=== PATIENT | male | born 1990 | race Caucasian/White ===

== ENCOUNTER 2020-01-05 14:58 | Outpatient (REF) | payer OTHER, SELFPAY | END 2020-01-05 14:59 | disposition home or self-care (01) | LOC: HO.LNP 14:58 | PROVIDERS: PCP Internal Medicine; Visit Provider Internal Medicine | DX: F11.99 Opioid use, unspecified with unspecified opioid-induced disorder (principal) | CPT/HCPCS: 36415; 80348; 96372; 99211; Q9992 ==

== ENCOUNTER → 2020-02-03 10:51 | Outpatient (BNVA) | payer OTHER, SELFPAY | PROVIDERS: Visit Provider Internal Medicine | DX: F11.99 Opioid use, unspecified with unspecified opioid-induced disorder (principal); B19.20 Unspecified viral hepatitis C without hepatic coma | CPT/HCPCS: 80305; 99212; Q9991 ==

== ENCOUNTER → 2020-03-02 11:19 | Outpatient (BNVA) | payer OTHER, SELFPAY | PROVIDERS: Visit Provider Internal Medicine | DX: F11.99 Opioid use, unspecified with unspecified opioid-induced disorder (principal) | CPT/HCPCS: 80305; 99211; Q9991 ==

== ENCOUNTER → 2020-03-30 11:00 | Outpatient (BNVA) | payer OTHER, SELFPAY | PROVIDERS: PCP Internal Medicine; Visit Provider Internal Medicine | DX: F11.99 Opioid use, unspecified with unspecified opioid-induced disorder (principal) | CPT/HCPCS: 96372; 99211; Q9991 ==

== ENCOUNTER → 2020-04-28 11:11 | Outpatient (BNVA) | payer OTHER, SELFPAY | PROVIDERS: Visit Provider Internal Medicine | DX: F11.99 Opioid use, unspecified with unspecified opioid-induced disorder (principal); B19.20 Unspecified viral hepatitis C without hepatic coma | CPT/HCPCS: 80305; 96372; 99212; Q9991 ==

== ENCOUNTER → 2020-05-27 11:04 | Outpatient (BNVA) | payer OTHER, SELFPAY | PROVIDERS: Visit Provider Nurse Practitioner Psychiatric/Mental Health | DX: F11.99 Opioid use, unspecified with unspecified opioid-induced disorder (principal); Z51.81 Encounter for therapeutic drug level monitoring | CPT/HCPCS: 80305; 96372; 99211; Q9991 ==

== ENCOUNTER 2020-06-22 09:44 | Outpatient (REF) | payer OTHER, SELFPAY ==
[2020-06-24 17:47] LABS: HCV Log PCR <1.18 NOT DETECTED Log IU/mL (NOT DETECTED); HepC Viral Load <15 NOT DETECTED IU/mL (NOT DETECTED)
[2020-06-25 11:42] LABS: Buprenorphine Negative; Norbuprenorphine Negative
== END 2020-06-22 09:45 | disposition home or self-care (01) ==
LOC: HO.LAB 09:44
PROVIDERS: Visit Provider Internal Medicine
DX: F11.99 Opioid use, unspecified with unspecified opioid-induced disorder (principal); B19.20 Unspecified viral hepatitis C without hepatic coma; Z51.81 Encounter for therapeutic drug level monitoring; Z79.899 Other long term (current) drug therapy
CPT/HCPCS: 80305; 80348; 87522; 96372; 99212; Q9991

== ENCOUNTER → 2020-07-21 13:05 | Outpatient (BNVA) | payer OTHER, SELFPAY | PROVIDERS: Visit Provider Internal Medicine | DX: F11.99 Opioid use, unspecified with unspecified opioid-induced disorder (principal); Z51.81 Encounter for therapeutic drug level monitoring | CPT/HCPCS: 80305; 96372; 99212; Q9992 ==

== ENCOUNTER → 2021-12-21 10:27 | Outpatient (BNVA) | payer OTHER, SELFPAY | PROVIDERS: PCP Internal Medicine; Visit Provider Nurse Practitioner Psychiatric/Mental Health | DX: F11.20 Opioid dependence, uncomplicated (principal) | CPT/HCPCS: 99212 ==

== ENCOUNTER 2021-12-28 10:53 | Outpatient (REF) | payer OTHER, SELFPAY ==
[2021-12-30 17:57] LABS: HCV Log PCR 1.76 Log IU/mL (NOT DETECTED); HepC Viral Load 58 IU/mL (NOT DETECTED)
== END 2021-12-28 10:54 | disposition home or self-care (01) ==
LOC: HO.LAB 10:53
PROVIDERS: PCP Internal Medicine; Visit Provider Internal Medicine
DX: F11.20 Opioid dependence, uncomplicated (principal); B19.20 Unspecified viral hepatitis C without hepatic coma; Z51.81 Encounter for therapeutic drug level monitoring; Z79.899 Other long term (current) drug therapy
CPT/HCPCS: 36415; 80305; 87522; 96372; 99212

== ENCOUNTER → 2022-01-11 10:37 | Outpatient (BNVA) | payer OTHER, SELFPAY | PROVIDERS: PCP Internal Medicine; Visit Provider Nurse Practitioner Psychiatric/Mental Health | DX: F11.20 Opioid dependence, uncomplicated (principal); F43.10 Post-traumatic stress disorder, unspecified; Z51.81 Encounter for therapeutic drug level monitoring; Z79.899 Other long term (current) drug therapy | CPT/HCPCS: 80305; 99212 ==

== ENCOUNTER → 2022-01-27 10:07 | Outpatient (BNVA) | payer OTHER, SELFPAY | PROVIDERS: PCP Internal Medicine; Visit Provider Nurse Practitioner Psychiatric/Mental Health | DX: F11.20 Opioid dependence, uncomplicated (principal); F43.10 Post-traumatic stress disorder, unspecified; B19.20 Unspecified viral hepatitis C without hepatic coma; Z51.81 Encounter for therapeutic drug level monitoring | CPT/HCPCS: 80305; 99212 ==

== ENCOUNTER 2022-02-03 10:14 | Outpatient (REF) | payer OTHER, SELFPAY ==
[2022-02-03 11:23] LABS: MANUAL DIFF FLAG NO
[2022-02-03 12:04] LABS: Basophils Percent Auto 0.5 % (0-2); Eosinophils Absolute Auto 0.1 X10*3/uL (0.0-0.4); Eosinophils Percent Auto 3.2 % (0-4); Hematocrit 40.8 % (42.0-52.0); Hemoglobin 13.2 g/dl (14.0-18.0); Imm Gran Abs Auto 0.01 X10*3/uL (0.00-0.03); Imm Gran Pct Auto 0.2 % (0.0-0.4); Lymphocytes Absolute Auto 1.6 X10*3/uL (1.2-4.9); Lymphocytes Percent Auto 38.7 % (20-40); Mean Corpuscular HGB Conc 32.4 g/dl (31.0-36.0); Mean Corpuscular Hemoglobin 27.5 pg (27.0-33.0); Mean Platelet Volume 9.4 fL (9.4-12.4); Monocytes Absolute Auto 0.4 X10*3/uL (0.1-1.2); Monocytes Percent Auto 9.7 % (2-11); Neutrophils Absolute Auto 1.9 x10*3/uL (2.0-8.3); Neutrophils Percent Auto 47.7 % (45-73); Platelet Count 184 X10*3/uL (160-400); Red Cell Distribution Width 11.9 % (11.0-16.0)
[2022-02-03 13:28] LABS: Alanine Aminotransferase 102 U/L (0-40); Albumin Level 4.3 g/dL (3.5-5.0); Alkaline Phosphatase 65 U/L (39-117); Anion Gap 14 (12-20); Aspartate Amino Transferase 48 U/L (5-37); Bilirubin Direct 0.3 mg/dL (0.0-0.5); Bilirubin Total 0.8 mg/dL (0.0-1.0); Blood Urea Nitrogen 16 mg/dL (9-16); Calcium 9.3 mg/dL (8.4-10.2); Carbon Dioxide 26 mmol/L (22-29); Chloride 106 mmol/L (96-108); Estimated Glomerular Filt Rate > 60; Glucose Random 107 mg/dL (60-115); Sodium 142 mmol/L (135-145); Total Protein 7.4 g/dL (6.5-8.0)
[2022-02-06 04:58] LABS: HIV AB/AG Nonreactive (Nonreactive); HIV Num 1 0.17 S/CO (0.00-0.99)
[2022-02-08 12:57] LABS: HCV RNA PCR Qn 4.66 Log IU/mL (NOT DETECTED); HCV RNA PCR Qn 45500 IU/mL (NOT DETECTED)
[2022-02-10 00:26] LABS: FIB-ALT 88 U/L (9-46); FIB-Alpha-2-Macroglobulin 190 mg/dL (106-279); FIB-Apolipoprotein A1 125 mg/dL (94-176); FIB-GGT 17 U/L (3-90); FIB-Haptoglobin 68 mg/dL (43-212); FIB-Total Bilirubin 0.7 mg/dL (0.2-1.2); Liver Fibrosis Score 0.22; Liver Fibrosis Stage F0-F1; Nec Inflam Act Grade A1-A2; Nec Inflam Act Score 0.48
[2022-02-12 11:27] LABS: HCV Genotype LiPA 1b
== END 2022-02-03 10:15 | disposition home or self-care (01) ==
LOC: HO.LAB 10:14
PROVIDERS: Internal Medicine; PCP Internal Medicine; Visit Provider Nurse Practitioner Psychiatric/Mental Health
DX: B19.20 Unspecified viral hepatitis C without hepatic coma (principal); F11.20 Opioid dependence, uncomplicated; Z51.81 Encounter for therapeutic drug level monitoring
CPT/HCPCS: 36415; 80048; 80076; 80305; 81596; 85025; 87389; 87522; 87902; 96372; 99212

== ENCOUNTER → 2022-03-10 10:23 | Outpatient (BNVA) | payer OTHER, SELFPAY | PROVIDERS: PCP Internal Medicine; Visit Provider Nurse Practitioner Psychiatric/Mental Health | DX: F11.20 Opioid dependence, uncomplicated (principal); Z79.899 Other long term (current) drug therapy; Z51.81 Encounter for therapeutic drug level monitoring | CPT/HCPCS: 80305; 96372; 99212 ==

== ENCOUNTER 2022-03-24 10:14 | Emergency (ER) | payer OTHER, SELFPAY ==
[2022-03-24 10:18] VITALS: BP 137/83; PULSE 83; RESP 18; TEMP 36.7; O2SAT 94; BMI 26.4
[2022-03-24] MEDS: Ibuprofen 600 MG TABLET PO (11:01)
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
== END 2022-03-24 12:33 | disposition home or self-care (01) ==
PROVIDERS: Emergency Provider Student in an Organized Health Care Education/Training Program; PCP Internal Medicine
DX: S62.91XA Unspecified fracture of right hand, initial encounter for closed fracture (principal); M25.531 Pain in right wrist; Y29.XXXA Contact with blunt object, undetermined intent, initial encounter; Y93.9 Activity, unspecified; Y92.9 Unspecified place or not applicable; Y99.9 Unspecified external cause status; Z79.899 Other long term (current) drug therapy
CPT/HCPCS: 73110; 73130; 99283

== ENCOUNTER 2022-06-29 10:23 | Outpatient (REF) | payer OTHER, SELFPAY ==
[2022-07-01 18:34] LABS: HCV RNA PCR Qn 1.96 Log IU/mL (NOT DETECTED); HCV RNA PCR Qn 92 IU/mL (NOT DETECTED)
== END 2022-06-29 10:24 | disposition home or self-care (01) ==
LOC: HO.LAB 10:23
PROVIDERS: PCP Internal Medicine; Visit Provider Internal Medicine
DX: F11.99 Opioid use, unspecified with unspecified opioid-induced disorder (principal); Z51.81 Encounter for therapeutic drug level monitoring; Z79.899 Other long term (current) drug therapy
CPT/HCPCS: 36415; 80305; 87522; 87902; 99212

== ENCOUNTER → 2022-07-10 11:02 | Outpatient (BNVA) | payer OTHER, SELFPAY | PROVIDERS: PCP Internal Medicine; Visit Provider Internal Medicine | DX: B19.20 Unspecified viral hepatitis C without hepatic coma (principal) | CPT/HCPCS: 99212 ==

== ENCOUNTER → 2022-07-14 12:58 | Outpatient (BNVA) | payer OTHER, SELFPAY | PROVIDERS: PCP Internal Medicine; Visit Provider Nurse Practitioner Psychiatric/Mental Health | DX: F11.99 Opioid use, unspecified with unspecified opioid-induced disorder (principal); B19.20 Unspecified viral hepatitis C without hepatic coma; Z51.81 Encounter for therapeutic drug level monitoring; Z79.899 Other long term (current) drug therapy | CPT/HCPCS: 80305; 96372 ==

== ENCOUNTER → 2022-08-15 13:11 | Outpatient (BNVA) | payer OTHER, SELFPAY | PROVIDERS: PCP Internal Medicine; Visit Provider Nurse Practitioner Psychiatric/Mental Health | DX: F11.20 Opioid dependence, uncomplicated (principal); B19.20 Unspecified viral hepatitis C without hepatic coma; Z79.899 Other long term (current) drug therapy; Z51.81 Encounter for therapeutic drug level monitoring | CPT/HCPCS: 80305; 96372; 99212 ==

== ENCOUNTER 2022-10-31 14:44 | Outpatient (AMB) | payer OTHER, SELFPAY ==
--- NOTE | 2022-10-31 14:48 | MHC.OFFVIS ---
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 Released from [facility] last week. Had been receiving Suboxone 8 mg b.i.d. there. Denies any recurrence since release date. States that prior to admission at [place] [id number] facility patient was using daily for 1-2 weeks. Familiar with injection, no questions or concerns at this time. [facility] Medical History Hepatitis C infection Review of Systems Const Reports as per HPI and Reports no additional complaints Physical Exam Const General: cooperative Skin General skin exam: no rashes or lesions noted Extrem General: Yes normal to inspection Psych Appearance: grossly normal Office Meds Sublocade 300 mg/1.5 mL solution,extended release subcutaneous syringe Performing Provider: Sarah Saldivar CNP Performing Location: [facility] Administered by: Tiarra Cordova on 10/31/22 15:28 Dose Route Admin Location Dispensed Lot Number Expiration Date [facility] Manifest/Order Organizer Print Orders 300 mg subcut LLQ 1.5 mL [id number] 04/02/24 [address]-9 [employer]. Comments: Pt tolerated injection well. Educated on signs/symptoms of infection, encouraged to call the [facility] with any questions or concerns. Results AMB 14 Panel Urine Drug Screen Urine Marijuana (THC) Positive Last Edit by Mellissa Da Silva CMA on 10/31/22 14:57 Urine Cocaine Negative Last Edit by Mellissa Da Silva CMA on 10/31/22 14:57 Urine Morphine Negative Last Edit by Mellissa Da Silva CMA on 10/31/22 14:57 Urine Methamphetamine Negative Last Edit by Mellissa Da Silva CMA on 10/31/22 14:57 Urine Amphetamine Negative Last Edit by Mellissa Da Silva CMA on 10/31/22 14:57 Urine Benzodiazepine Negative Last Edit by Mellissa Da Silva CMA on 10/31/22 14:57 Urine Barbiturates Negative Last Edit by Mellissa Da Silva CMA on 10/31/22 14:57 Urine Methadone Negative Last Edit by Mellissa Da Silva CMA on 10/31/22 14:57 Urine Buprenorphine Positive Last Edit by Mellissa Da Silva CMA on 10/31/22 14:57 Urine Tricyclic Antidepressant Negative Last Edit by Mellissa Da Silva CMA on 10/31/22 14:57 Urine MDMA Negative Last Edit by Mellissa Da Silva CMA on 10/31/22 14:57 Urine Oxycodone Negative Last Edit by Mellissa Da Silva CMA on 10/31/22 14:57 Urine Phencyclidine Negative Last Edit by Mellissa Da Silva CMA on 10/31/22 14:57 Urine Propoxyphene Negative Last Edit by Mellissa Da Silva CMA on 10/31/22 14:57 Results Reviewed Results Reviewed: Laboratory Last Values POC Urine Buprenorphine Positive 10/31/22 14:49 POC Urine Morphine Negative 10/31/22 14:49 POC Urine Oxycodone Negative 10/31/22 14:49 POC Urine Methadone Negative 10/31/22 14:49 POC Urine Propoxyphene Negative 10/31/22 14:49 POC Urine Barbiturates Negative 10/31/22 14:49 POC U Tricyclic Antidpr Negative 10/31/22 14:49 POC Urine PCP Negative 10/31/22 14:49 POC Ur Amphetamines Negative 10/31/22 14:49 POC Ur Methamphetamine Negative 10/31/22 14:49 POC Urine MDMA Negative 10/31/22 14:49 POC Ur Benzodiazepine Negative 10/31/22 14:49 POC Urine Cocaine Negative 10/31/22 14:49 POC Ur Marijuana (THC) Positive 10/31/22 14:49 Assessment & Plan Assessment & Plan (1) Opioid use disorder: Code(s): F11.99 - Opioid use, unspecified with unspecified opioid-induced disorder Plan: Tolerated injection Relapse prevention discussion Follow-up 2 weeks Orders: Orders AMB 14 Panel Urine Drug Screen 10/31/22 Z51.81 - Encounter for therapeutic drug level monitoring AMB Buprenorphine Injection - Patient Supplied 10/31/22 F11.99 - Opioid use, unspecified with unspecified opioid-induced disorder Coding Level of Care Code Est Pt Level 3 (09200) Diagnoses Opioid use disorder F11.99
== END 2022-10-31 15:40 | disposition home or self-care (01) ==
LOC: HO.HCC 14:44
PROVIDERS: PCP Internal Medicine; Visit Provider Nurse Practitioner Psychiatric/Mental Health
DX: F11.99 Opioid use, unspecified with unspecified opioid-induced disorder (principal)
CPT/HCPCS: 99213; Q9992

== ENCOUNTER → 2022-10-31 14:44 | Outpatient (BNVA) | payer OTHER, SELFPAY | PROVIDERS: PCP Internal Medicine; Visit Provider Nurse Practitioner Psychiatric/Mental Health | DX: F11.20 Opioid dependence, uncomplicated (principal); B19.20 Unspecified viral hepatitis C without hepatic coma; Z51.81 Encounter for therapeutic drug level monitoring; Z79.899 Other long term (current) drug therapy | CPT/HCPCS: 80305; 96372; 99212 ==

== ENCOUNTER 2022-12-05 13:45 | Outpatient (AMB) | payer OTHER, SELFPAY ==
--- NOTE | 2022-12-05 13:47 | AM.OFFVISNUR ---
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 Required: No Allergies No Known Allergies [No Known Allergies*] Allergy (Verified 12/05/22 13:48) Do you need a note to return to daycare/school/sports/work: No Results AMB 14 Panel Urine Drug Screen Urine Marijuana (THC) Positive Last Edit by Mellissa Da Silva CMA on 12/05/22 14:08 Urine Cocaine Positive Last Edit by Mellissa Da Silva CMA on 12/05/22 14:08 Urine Morphine Positive Last Edit by Mellissa Da Silva CMA on 12/05/22 14:08 Urine Methamphetamine Negative Last Edit by Mellissa Da Silva CMA on 12/05/22 14:08 Urine Amphetamine Negative Last Edit by Mellissa Da Silva CMA on 12/05/22 14:08 Urine Benzodiazepine Negative Last Edit by Mellissa Da Silva CMA on 12/05/22 14:08 Urine Barbiturates Negative Last Edit by Mellissa Da Silva CMA on 12/05/22 14:08 Urine Methadone Negative Last Edit by Mellissa Da Silva CMA on 12/05/22 14:08 Urine Buprenorphine Positive Last Edit by Mellissa Da Silva CMA on 12/05/22 14:08 Urine Tricyclic Antidepressant Negative Last Edit by Mellissa Da Silva CMA on 12/05/22 14:08 Urine MDMA Positive Last Edit by Mellissa Da Silva CMA on 12/05/22 14:08 Urine Oxycodone Negative Last Edit by Mellissa Da Silva CMA on 12/05/22 14:08 Urine Phencyclidine Negative Last Edit by Mellissa Da Silva CMA on 12/05/22 14:08 Urine Propoxyphene Negative Last Edit by Mellissa Da Silva CMA on 12/05/22 14:08 Coding Diagnoses Assessment & Plan Assessment & Plan Orders: Orders AMB 14 Panel Urine Drug Screen Today Z51.81 - Encounter for therapeutic drug level monitoring
[2022-12-05 14:04] VITALS: BP 134/82; PULSE 86; O2SAT 97
== END 2022-12-05 14:34 | disposition home or self-care (01) ==
PROVIDERS: PCP Internal Medicine; Visit Provider Nurse Practitioner Psychiatric/Mental Health
DX: Z51.81 Encounter for therapeutic drug level monitoring (principal)

== ENCOUNTER → 2022-12-05 13:45 | Outpatient (BNVA) | payer OTHER, SELFPAY | PROVIDERS: PCP Internal Medicine; Visit Provider Nurse Practitioner Psychiatric/Mental Health | DX: Z51.81 Encounter for therapeutic drug level monitoring (principal) | CPT/HCPCS: 80305 ==

== ENCOUNTER 2023-01-24 11:15 | Outpatient (AMB) | payer MEDICAID, SELFPAY ==
[2023-01-24 11:22] VITALS: BP 120/78; PULSE 70; O2SAT 96
--- NOTE | 2023-01-24 11:22 | MHC.OFFVIS ---
Intake Vital Signs 01/24/23 11:22 BP 120/78 Blood Pressure Location Lt radial Position Sitting Pulse 70 Pulse Source Pulse Oximeter Pulse Oximetry (%) 96 Oxygen Delivery Method Room Air Intake Visit Reasons: MAT Visit Intake Note: the patient presents for a sub inj Public Affairs Manager Required: No Allergies No Known Allergies [No Known Allergies*] Allergy (Verified 01/24/23 11:31) Do you need a note to return to daycare/school/sports/work: No HPI MAT Visit HPI Details Patient presents for follow up and SUblocade injection recently [facility] Sublocade injection received while there (one month ago) Has been working, back 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--will be completing intake for IOP at [facility] on January 05 [facility] Medical History Hepatitis C infection Review of Systems Const Reports as per HPI and Reports no additional complaints Physical Exam Vital Signs: Last Vital Signs Pulse 70 01/24/23 11:22 BP 120/78 01/24/23 11:22 Pulse Ox 96 01/24/23 11:22 Oxygen Delivery Method Room Air 01/24/23 11:22 Const General: cooperative, healthy appearing and comfortable Nutritional Appearance: average body habitus Orientation/consciousness: patient oriented x3 Limitations: no limitations Neuro General: patient oriented x3 Office Meds Sublocade 300 mg/1.5 mL solution,extended release subcutaneous syringe Performing Provider: Sarah Saldivar CNP Performing Location: [facility] Administered by: Maryana Reed RN on 01/24/23 12:09 Dose Route Admin Location Dispensed Lot Number Expiration Date [facility] Energy Audit Advisor 300 mg subcut LUQ 1.5 mL [id number] 05/02/24 [address]-9 [employer] Comments: Pt education provided, pt to monitor for s/s of infection, pain, swelling, redness, discharge, warmth and to call [facility] if any symptoms arise. Pt verbalized understanding. Pt tolerated injection. Assessment & Plan Assessment & Plan (1) Opioid use disorder: Code(s): F11.99 - Opioid use, unspecified with unspecified opioid-induced disorder Plan: tolerated 300mg injection follow up 4 weeks encouraged to call office should he need to Orders: Orders AMB Buprenorphine Injection - Patient Supplied Today F11.99 - Opioid use, unspecified with unspecified opioid-induced disorder Coding Level of Care Code Est Pt Level 3 (29797) Diagnoses Opioid use disorder F11.99
== END 2023-01-24 11:55 | disposition home or self-care (01) ==
PROVIDERS: PCP Internal Medicine; Visit Provider Nurse Practitioner Psychiatric/Mental Health
DX: F11.99 Opioid use, unspecified with unspecified opioid-induced disorder (principal)
CPT/HCPCS: 99213

== ENCOUNTER → 2023-01-24 11:15 | Outpatient (BNVA) | payer OTHER, SELFPAY | PROVIDERS: PCP Internal Medicine | DX: F11.20 Opioid dependence, uncomplicated (principal) | CPT/HCPCS: 96372; 99212; Q9992 ==

== ENCOUNTER 2023-02-07 14:30 | Emergency (ER) | payer MEDICAID, SELFPAY ==
[2023-02-07 15:04] VITALS: BP 112/74; PULSE 66; RESP 18; TEMP 36.6; O2SAT 98; BMI 23.7
--- NOTE | 2023-02-07 15:04 | ED.GENADULT ---
HPI - General Adult General Chief complaint: Dental/Oral Stated complaint: Dental pain Time Seen by Provider: 02/07/23 15:13 Source: patient and RN notes reviewed Mode of arrival: ambulatory Limitations: no limitations History of Present Illness HPI narrative: This is a 32-year-old male presenting to the emergency department for evaluation left lower dental pain x 3 days. Patient has no broken teeth his left lower jaw line. No fevers or chills. He has been taking Tylenol with some relief. He tried to follow-up with the dentist today but was told that he does not have insurance and was unable to be seen. No other complaints or concerns at this time. MD complaint: Dental pain Onset (ago): day(s) Radiation: non-radiation Quality: aching Pain Consistency: constant Relieving factors: none Exacerbating factors: none Associated symptoms: denies other symptoms Treatments prior to arrival: none Related Data Home Medications Medication Instructions Recorded Confirmed polyethylene glycol 3350 17 17 g PO DAILY 01/03/20 06/29/22 gram/dose oral powder (Miralax) Previous Rx's Medication Instructions Recorded bupropion HCl 300 mg 24 hr tablet, 300 mg PO QAM #30 tabs 03/10/22 extended release (Wellbutrin XL) olanzapine 2.5 mg tablet (Zyprexa) 2.5 mg PO BID PRN agitation #20 03/10/22 tabs sofosbuvir 400 mg-velpatasvir 100 1 tab PO DAILY 12 weeks #84 tabs 07/10/22 mg tablet (Epclusa) glecaprevir 100 mg-pibrentasvir 40 3 tab PO DAILY 8 weeks #168 tabs 07/14/22 mg tablet (Mavyret) buprenorphine 300 mg/1.5 mL 300 mg (1.5 mL) subcut ONCE #1.5 mL 07/31/22 solution,exten.rel.subcutaneous syringe (Sublocade) buprenorphine 8 mg-naloxone 2 mg 1 film sublingual BID #6 ea 12/05/22 sublingual film (Suboxone) acetaminophen 500 mg tablet 1,000 mg (2 x 500 mg) PO Q8H PRN 02/07/23 (Tylenol Extra Strength) fever or pain #45 tabs amoxicillin 875 mg-potassium 1 tab PO BID 7 days #14 tabs 02/07/23 clavulanate 125 mg tablet ibuprofen 800 mg tablet 800 mg PO Q8H PRN pain #45 tabs 02/07/23 Allergies Allergy/AdvReac Type Severity Reaction Status Date / Time No Known Allergies Allergy Verified 01/24/23 11:31 [No Known Allergies*] Review of Systems Review of Systems: Yes all other systems are reviewed and are negative REPLACED BY [facility] Past Medical History Attestation statement: The following information was validated with the patient. Medical History Hepatitis C infection Social History Social History Advance Directives: No Advance Directives Information Provided: No Physical Exam ED Vital Signs: Vital Signs - 24 hr 02/07/23 15:04 Temperature 98 F Pulse Rate 66 Respiratory Rate 18 Blood Pressure 112/74 Pulse Oximetry 98 Oxygen Delivery Method Room Air BMI result Body Mass Index 23.7 Const Other: General: Awake, alert, and oriented X3. No acute distress. HEENT: Normal inspection. Poor dentition throughout, to broken molars the left lower, no surrounding gingival erythema or fluctuance. No evidence of abscess. Airways patent CVS: Normal heart rate and rhythm. Pulses normal. Respiratory: No respiratory distress Skin: Warm, dry, no rashes noted to exposed skin. Normal skin color. Normal skin turgor. Extremities: Normal to inspection Neuro: Oriented X 3. No motor deficit. No sensory deficit. Medical Decision Making Medical Decision Making MDM Narrative: This is a 32-year-old male presenting to the emergency department for evaluation of left lower dental pain x3 days. On arrival, vital signs within normal limits. Patient has poor dentition throughout. Left lower dentition with decay noted with tenderness to palpation. Patient has no obvious dental abscess that needs I and D. Will treat with prophylactic antibiotic, ibuprofen and Tylenol. Educated the importance of following up with a dentist. Patient understands, given return precautions. Patient stable for discharge Differential Diagnosis Differential Diagnoses: The differential diagnosis associated with the presentation includes Dental abscess, dental decay, dental fracture, facial pain Discharge Plan Discharge Clinical Impression: Dental infection Patient Disposition: Home, Self-Care Instructions: Dental Abscess (ED) Additional Instructions: You have a dental infection. Please take prescribed antibiotic as directed. Take ibuprofen and Tylenol as directed. Please follow-up with a dentist. Drink plenty of fluids get plenty of rest. If any new or worsening symptoms occur, please return for re-evaluation. Prescriptions: New amoxicillin-pot clavulanate 875-125 mg tablet 1 tab PO BID 7 Days Qty: 14 0RF ibuprofen 800 mg tablet 800 mg PO Q8H PRN (Reason: pain) Qty: 45 0RF acetaminophen [Tylenol Extra Strength] 500 mg tablet 1,000 mg PO Q8H PRN (Reason: fever or pain) Qty: 45 0RF Rx Instructions: Do not exceed 3000 mg in 24 hours No Action Mavyret 100-40 mg tablet 3 tab PO DAILY 56 Days Qty: 168 0RF Rx Instructions: must administer with a meal/food Sublocade 300 mg/1.5 mL solution, extended rel syringe 300 mg subcut ONCE Qty: 1.5 5RF Rx Instructions: once every 28 days polyethylene glycol 3350 [Miralax] 17 gram/dose powder 17 g PO DAILY bupropion HCl [Wellbutrin XL] 300 mg tablet extended release 24 hr 300 mg PO QAM Qty: 30 1RF olanzapine [Zyprexa] 2.5 mg tablet 2.5 mg PO BID PRN (Reason: agitation) Qty: 20 0RF sofosbuvir-velpatasvir [Epclusa] 400-100 mg tablet 1 tab PO DAILY 84 Days Qty: 84 0RF buprenorphine-naloxone [Suboxone] 8-2 mg film 1 film sublingual BID Qty: 6 0RF Interventions: ED Discharge Assessment Last Done: 02/07/23 15:23 Discharge Date/Time: 02/07/23 15:24
== END 2023-02-07 15:24 | disposition home or self-care (01) ==
PROVIDERS: Emergency Provider Student in an Organized Health Care Education/Training Program; PCP Internal Medicine
DX: K04.7 Periapical abscess without sinus (principal); Z79.899 Other long term (current) drug therapy
CPT/HCPCS: 99282; 99283

== ENCOUNTER 2023-02-27 15:36 | Outpatient (AMB) | payer MEDICAID, SELFPAY ==
[2023-02-27 15:45] VITALS: BP 116/70; PULSE 68; O2SAT 95
--- NOTE | 2023-02-27 15:45 | MHC.OFFVIS ---
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 Reports no substance use x 3 months Reports for the last few days he has been experiencing some breakthrough withdrawals (body aches, chills, runny nose) Reports no concerns other than breakthrough symptoms. [facility] Medical History Hepatitis C infection Review of Systems Const Reports as per HPI Physical Exam Vital Signs: Last Vital Signs Pulse 68 02/27/23 15:45 BP 116/70 02/27/23 15:45 Pulse Ox 95 02/27/23 15:45 Oxygen Delivery Method Room Air 02/27/23 15:45 Const General: no acute distress Nutritional Appearance: average body habitus Resp Effort & Inspection: normal respiratory effort Psych Appearance: grossly normal Mental Status: mental status grossly normal Speech and movement: Normal speech and movement present Affect: Blunted affect present Attitude: Guarded attititude/behavior present Office Meds Sublocade 300 mg/1.5 mL solution,extended release subcutaneous syringe Performing Provider: Kellie Carpenter NP Performing Location: [facility] Administered by: Tiarra Cordova on 02/27/23 16:00 Dose Route Admin Location Dispensed Lot Number Expiration Date [facility] Silver Solderer 300 mg subcut LLQ 1.5 mL [id number] 11/01/23 [address]-9 [employer] Comments: Pt tolerated injection well. Educated on signs/symptoms of infection, encouraged to call the [facility] with questions or concerns. Assessment & Plan Assessment & Plan (1) Opioid use disorder: Code(s): F11.99 - Opioid use, unspecified with unspecified opioid-induced disorder Plan Pt is tolerating injection well Follow up in 4 weeks Encouraged to call if need to be seen sooner Orders: Orders AMB Buprenorphine Injection - Patient Supplied 02/27/23 F11.99 - Opioid use, unspecified with unspecified opioid-induced disorder Medications: Refilled buprenorphine-naloxone 8-2 mg (Suboxone) 1 film sublingual BID 6 ea 0RF Coding Level of Care Code Est Pt Level 3 (72071) Diagnoses Opioid use disorder F11.99
== END 2023-02-27 16:11 | disposition home or self-care (01) ==
PROVIDERS: PCP Internal Medicine; Visit Provider Nurse Practitioner Family
DX: F11.99 Opioid use, unspecified with unspecified opioid-induced disorder (principal)
CPT/HCPCS: 99213

== ENCOUNTER → 2023-02-27 15:36 | Outpatient (BNVA) | payer OTHER, SELFPAY | PROVIDERS: PCP Internal Medicine; Visit Provider Nurse Practitioner Family | DX: F11.23 Opioid dependence with withdrawal (principal); Z51.81 Encounter for therapeutic drug level monitoring; Z79.899 Other long term (current) drug therapy | CPT/HCPCS: 96372; 99212; Q9992 ==

== ENCOUNTER 2023-03-27 15:43 | Outpatient (AMB) | payer MEDICAID, SELFPAY ==
--- NOTE | 2023-03-27 15:47 | AM.OFFVISNUR ---
Intake Vital Signs 03/27/23 15:51 BP 108/72 Blood Pressure Location Lt radial Position Sitting Pulse 71 Pulse Source Pulse Oximeter Pulse Oximetry (%) 96 Oxygen Delivery Method Room Air Intake Visit Reasons: Sub Inj Intake Note: the patient presents for a sub inj Shoe Polisher Required: No Allergies No Known Allergies [No Known Allergies*] Allergy (Verified 03/27/23 15:52) Do you need a note to return to daycare/school/sports/work: No Nursing Note Pt. presents for OUD F/U and sublocade injection.? Pt A&O x 4 pleasant and cooperative with care.? Pt reports that his holiday was good. He stated his recovery is going well. ? Pt. denies any systemic or local SE from sublocade injection.? He denies any cravings or urges to use opiates but did report that approx 1-2 days prior to his injection being due that he gets fatigue, runny nose and chills. He takes strips as prescribed during this time with good effect but is out of strips. Note sent to provider Kellie with request for refill. Pt. is motivated for recovery and is actively participating in his treatment.? T/W administered sublocade injection as per provider orders.? Pt. will F/U in clinic in four weeks for check in and injection. Office Meds Sublocade 300 mg/1.5 mL solution,extended release subcutaneous syringe Performing Provider: Kellie Carpenter NP Performing Location: [facility] Administered by: Tawana Poon RN on 03/27/23 16:05 Dose Route Admin Location Dispensed Lot Number Expiration Date [facility] Bolt Maker 300 mg subcut RLQ 1.5 mL [id number] 05/03/24 [id number] [employer]. Comments: Pt tolerated injection well. Educated on S/S of infection. Encouraged to call [facility] with questions/concerns. Coding Assessment & Plan Assessment & Plan Orders: Orders AMB Buprenorphine Injection - Patient Supplied Today F11.99 - Opioid use, unspecified with unspecified opioid-induced disorder
[2023-03-27 15:51] VITALS: BP 108/72; PULSE 71; O2SAT 96
== END 2023-03-27 16:06 | disposition home or self-care (01) ==
PROVIDERS: PCP Internal Medicine
DX: F11.99 Opioid use, unspecified with unspecified opioid-induced disorder (principal)

== ENCOUNTER → 2023-03-27 15:43 | Outpatient (BNVA) | payer OTHER, SELFPAY | PROVIDERS: PCP Internal Medicine | DX: F11.20 Opioid dependence, uncomplicated (principal); Z79.899 Other long term (current) drug therapy | CPT/HCPCS: 96372; Q9992 ==